=== PATIENT | male | born 1955 | race Caucasian/White ===

== ENCOUNTER 2019-04-16 10:21 | Outpatient (CLI) | payer MEDICARE, BC ==
--- NOTE | 2019-04-16 11:43 | RAD ---
MRI SAFETY PRO SINUSES: DATE: 04/16/2019. PROVIDED CLINICAL HISTORY: MRI safety clearance. FINDINGS: Pro view sinuses was performed for the evaluation of possible foreign body in the region of the or bits. There is no evidence for such. IMPRESSION: As above. POS: OFF
--- NOTE | 2019-04-16 12:08 | MRI ---
Lumbar spine MRI without contrast: 04/16/2019 COMPARISON: None HISTORY: Spinal stenosis, occasional right-sided hip pain, low back pain for one year TECHNIQUE: Multiplanar multisequence MR imaging of the lumbar spine obtained without contrast FINDINGS: The sagittal STIR imaging demonstrates no focal area of osseous marrow edema. On the basis of 5 lumbar type vertebral bodies, the conus medullaris terminates at T12. T12-L1: Minimal disc bulge. Mild bilateral facet hypertrophy. No significant central canal or neural foraminal stenosis. L1-2: Mild bilateral facet hypertrophy. Disc space narrowing, disc desiccation, and mild anterior ost eophyte formation. No significant central canal or neural foraminal stenosis. L2-3: Mild bilateral facet hypertrophy and hypertrophy of the ligamentum flavum. There is disc space narrowing and disc desiccation with mild disc bulge. Superimposed left paracentral/left foraminal disc protrusion. Mild left lateral recess stenosis. No significant neural foraminal stenosis. L3-4: Disc desiccation and mild disc bulge. Mild bilateral facet hypertrophy. No significant central canal or neural foraminal stenosis. L4-5: There is disc desiccation, disc space narrowing, and degenerative endplate change. Mild bilater al facet hypertrophy. No significant central canal or neural foraminal stenosis area L5-S1: Mild bilateral facet hypertrophy with no significant central canal or neural foraminal stenosi s. Image retroperitoneal structures demonstrate no acute findings. IMPRESSION: Degenerative change as detailed above.
== END 2019-04-16 10:22 | disposition home or self-care (01) ==
LOC: BICMRI 10:21
PROVIDERS: ATTEND Orthopaedic Surgery
DX: M51.36 Other intervertebral disc degeneration, lumbar region (principal); M48.062 Spinal stenosis, lumbar region with neurogenic claudication; M47.816 Spondylosis without myelopathy or radiculopathy, lumbar region; M47.817 Spondylosis without myelopathy or radiculopathy, lumbosacral region
CPT/HCPCS: 70210; 72148

== ENCOUNTER 2020-11-10 13:16 | Outpatient (CLI) | payer MEDICARE, BC ==
[2020-11-10 15:13] LABS: #Eosinphils 0.1 10x3/uL (0.0-0.5); #Monocytes 0.6 10x3/uL (0.0-1.1); %Basophils 0.6 % (0.0-2.0); %Eosinophils 1.2 % (0.0-6.0); %Lymphocytes 37.8 % (18.0-47.0); %Monocytes 11.2 % (0.0-10.0); Hemoglobin 14.2 g/dL (13.5-17.5); Mean Corpuscular HGB CONC 34.1 g/dL (32.0-36.0); Mean Corpuscular Hemoglobin 33.8 pg (27.0-33.0); Mean Platelet Volume 10.6 fl (7.4-10.4); Platelet Count 244 10x3/uL (150-450); RBC Distribution Width 12.3 % (11.5-14.5); White Blood Cell (WBC) Count 4.9 10x3/uL (3.5-10.5)
[2020-11-10 15:22] LABS: #Neutrophils 2.4 10x3/uL (1.5-8.4); %Neutrophils 49.2 % (40.0-75.0)
[2020-11-11 01:53] LABS: SARS-CoV-2 PCR by NAA Not Detected (NotDetected)
== END 2020-11-10 13:17 | disposition home or self-care (01) ==
LOC: LABBT 13:16
PROVIDERS: ATTEND Orthopaedic Surgery Hand Surgery
DX: Z01.818 Encounter for other preprocedural examination (principal); M72.0 Palmar fascial fibromatosis [Dupuytren]; Z20.822 Contact with and (suspected) exposure to COVID-19
CPT/HCPCS: 85025; 93005; U0003; U0005; 87635; 93010

== ENCOUNTER 2020-11-15 07:23 | Day surgery (SDC) | payer MEDICARE, BC ==
[2020-11-11 11:29] VITALS: BMI 26.6
[2020-11-15] MEDS ORDERED: Fentanyl 100 MCG/2 ML VIAL ONE ×2 (09:19→10:51)
[2020-11-15] MEDS ORDERED: Midazolam HCl 2 mg/2 ml Vial ONE (09:19)
[2020-11-15] MEDS ORDERED: Sodium Chloride 0.9% 10 ML ONE (10:58)
[2020-11-15] MEDS ORDERED: Bacitracin Zinc Ointment 30 gm TUBE ONE (10:58)
[2020-11-15] MEDS ORDERED: Clindamycin/D5W 900 mg/50 ml Premix Bag ONE (11:01)
[2020-11-15] MEDS ORDERED: Lidocaine 1% PF 5 ML VIAL ONE (11:16)
[2020-11-15] MEDS ORDERED: ePHEDrine Sulfate 50 MG/10 ML VIAL ONE (11:16)
[2020-11-15] MEDS ORDERED: PHENYLEPHRINE-NS 100 MCG/ML 10 ML SYRINGE ONE (11:16)
[2020-11-15] MEDS ORDERED: Ketorolac Tromethamine 30 MG/ML VIAL ONE (11:16)
[2020-11-15] MEDS ORDERED: Bupivacaine HCl 0.5%/Epinephrine 1:200,000/PF 30 ml Vial ONE (11:16)
[2020-11-15] MEDS ORDERED: Ondansetron PF 4 MG/2 ML Vial ONE (11:16)
[2020-11-15] MEDS ORDERED: PROPOFOL 200 MG/20 ML VIAL ONE (11:16)
[2020-11-15] MEDS ORDERED: Dexamethasone 20 MG/5 ML VIAL ONE (11:16)
[2020-11-15] MEDS ORDERED: Betamet Acet/Betamet Na Ph 30 MG/5 ML VIAL ONE (13:59)
== END 2020-11-15 19:25 | disposition home or self-care (01) ==
LOC: SDC 07:23
PROVIDERS: ATTEND Orthopaedic Surgery Hand Surgery
PROC: 0JNK0ZZ Release Left Hand Subcutaneous Tissue and Fascia, Open Approach (ICD-10-PCS; principal; 2020-11-15)
PROC: 0LN80ZZ Release Left Hand Tendon, Open Approach (ICD-10-PCS; 2020-11-15)
PROC: 0LN80ZZ Release Left Hand Tendon, Open Approach (ICD-10-PCS; 2020-11-15)
PROC: 0LN80ZZ Release Left Hand Tendon, Open Approach (ICD-10-PCS; 2020-11-15)
PROC: 0LN80ZZ Release Left Hand Tendon, Open Approach (ICD-10-PCS; 2020-11-15)
PROC: 01Q40ZZ Repair Ulnar Nerve, Open Approach (ICD-10-PCS; 2020-11-15)
PROC: 01U40JZ Supplement Ulnar Nerve with Synthetic Substitute, Open Approach (ICD-10-PCS; 2020-11-15)
DX: S64.02XA Injury of ulnar nerve at wrist and hand level of left arm, initial encounter (principal); M72.0 Palmar fascial fibromatosis [Dupuytren]; M72.2 Plantar fascial fibromatosis; C47.1 Malignant neoplasm of peripheral nerves of upper limb, including shoulder; D36.12 Benign neoplasm of peripheral nerves and autonomic nervous system, upper limb, including shoulder; I10 Essential (primary) hypertension; E78.5 Hyperlipidemia, unspecified; I42.9 Cardiomyopathy, unspecified; I25.10 Atherosclerotic heart disease of native coronary artery without angina pectoris; B00.9 Herpesviral infection, unspecified; Z79.1 Long term (current) use of non-steroidal anti-inflammatories (NSAID); Z79.899 Other long term (current) drug therapy; Z88.0 Allergy status to penicillin
CPT/HCPCS: 26123; 26125 ×3; 64831; 64910; 88304; C9352; J0702; J1100; J1885; J2250; J2405; J2704; J3010; J3490

== ENCOUNTER 2021-05-05 14:30 | Outpatient (CLI) | payer MEDICARE, BC ==
[2021-05-05 16:36] LABS: #Eosinphils 0.1 10x3/uL (0.0-0.5); #Monocytes 0.6 10x3/uL (0.0-1.1); #Neutrophils 2.3 10x3/uL (1.5-8.4); %Basophils 0.8 % (0.0-2.0); %Eosinophils 1.1 % (0.0-6.0); %Monocytes 12.7 % (0.0-10.0); %Neutrophils 48.2 % (40.0-75.0); Hemoglobin 13.7 g/dL (13.5-17.5); Mean Corpuscular HGB CONC 33.6 g/dL (32.0-36.0); Mean Corpuscular Hemoglobin 33.4 pg (27.0-33.0); Mean Corpuscular Volume 99.5 fl (81.2-95.1); Mean Platelet Volume 10.1 fl (7.4-10.4); Platelet Count 225 10x3/uL (150-450); RBC Distribution Width 13.5 % (11.5-14.5); White Blood Cell (WBC) Count 4.7 10x3/uL (3.5-10.5)
[2021-05-05 16:59] LABS: Bilirubin Neg (Negative); Blood, Urine Negative (Negative); Clarity Clear (Clear); Glucose, Urine (Dipstick) Normal (Negative); Ketone, Urine Negative (Negative); Leukocyte Negative (Negative); Nitrite Negative (Negative); Protein, Urine (Dipstick) Negative (Neg-Trace)
[2021-05-05 17:26] LABS: RBC/HPF None Seen HPF (0-3)
[2021-05-05 17:27] LABS: Bacteria/HPF None Seen HPF (None Seen); Squamous Epithelial 0-3 HPF (0-3); WBC/HPF None Seen HPF (0-3)
[2021-05-06 13:17] LABS: SARS-CoV-2 PCR by NAA Not Detected (NotDetected)
== END 2021-05-05 14:31 | disposition home or self-care (01) ==
LOC: LABBT 14:30
PROVIDERS: ATTEND Orthopaedic Surgery Hand Surgery
DX: Z01.818 Encounter for other preprocedural examination (principal); M72.0 Palmar fascial fibromatosis [Dupuytren]; Z20.822 Contact with and (suspected) exposure to COVID-19
CPT/HCPCS: 81001; 85025; U0003; U0005; 93005; 93010

== ENCOUNTER 2021-05-09 07:53 | Day surgery (SDC) | payer MEDICARE, BC ==
[2021-05-08 13:43] VITALS: BMI 25.0
[2021-05-09] MEDS ORDERED: Bupivacaine PF 0.5% 30 ML VIAL ONE (09:15)
[2021-05-09] MEDS ORDERED: Betamet Acet/Betamet Na Ph 30 MG/5 ML VIAL ONE (09:15)
[2021-05-09] MEDS ORDERED: Bacitracin Zinc Ointment 30 gm TUBE ONE (09:16)
[2021-05-09] MEDS ORDERED: Neomycin-Polymyxin 1 ML AMP ONE (09:16)
[2021-05-09] MEDS ORDERED: Midazolam HCl 2 mg/2 ml Vial ONE (09:33)
[2021-05-09] MEDS ORDERED: Fentanyl 100 MCG/2 ML VIAL ONE ×2 (09:33→09:45)
[2021-05-09] MEDS ORDERED: Bupivacaine HCl 0.5%/Epinephrine 1:200,000/PF 30 ml Vial ONE (09:47)
[2021-05-09] MEDS ORDERED: Vancomycin 1 GM/200 ML BAG ONE (09:58)
[2021-05-09] MEDS ORDERED: Ondansetron PF 4 MG/2 ML Vial ONE (10:20)
[2021-05-09] MEDS ORDERED: Lidocaine 1% PF 5 ML VIAL ONE (10:20)
[2021-05-09] MEDS ORDERED: Dexamethasone 20 MG/5 ML VIAL ONE (10:20)
[2021-05-09] MEDS ORDERED: PROPOFOL 200 MG/20 ML VIAL ONE (10:20)
[2021-05-09] MEDS ORDERED: Labetalol HCl 100 MG/20 ML VIAL ONE (14:18)
== END 2021-05-09 15:45 | disposition home or self-care (01) ==
LOC: SDC 07:53
PROVIDERS: ATTEND Orthopaedic Surgery Hand Surgery
PROC: 0JNJ0ZZ Release Right Hand Subcutaneous Tissue and Fascia, Open Approach (ICD-10-PCS; principal; 2021-05-09)
PROC: 0LN70ZZ Release Right Hand Tendon, Open Approach (ICD-10-PCS; 2021-05-09)
PROC: 0LN70ZZ Release Right Hand Tendon, Open Approach (ICD-10-PCS; 2021-05-09)
PROC: 3E0T3BZ Introduction of Anesthetic Agent into Peripheral Nerves and Plexi, Percutaneous Approach (ICD-10-PCS; 2021-05-09)
DX: M72.0 Palmar fascial fibromatosis [Dupuytren] (principal); B00.9 Herpesviral infection, unspecified; I42.9 Cardiomyopathy, unspecified; M19.90 Unspecified osteoarthritis, unspecified site; Z79.1 Long term (current) use of non-steroidal anti-inflammatories (NSAID); Z79.899 Other long term (current) drug therapy; Z88.0 Allergy status to penicillin
CPT/HCPCS: 88304; J0702; J2250; J3010; J3370; S0020